=== PATIENT | female | born 1975 | race Caucasian/White ===

== ENCOUNTER → 2019-05-10 | Outpatient (CLI) | payer BC ==
[2014-03-31 09:50] VITALS: BP 118/62
[~2019-05-10] MED LIST: INSU100C4 SQ; INSU100V13 SQ; INSU100V6 SQ; LIRA0.6P2 SQ; RANI150T2 PO
--- NOTE | 2019-05-10 13:24 | RAD ---
EXAM: Chest, 2 views. HISTORY: Shortness of breath. COMPARISON: None. FINDINGS: 2 views of the chest are obtained. There is mild diffuse increased interstitial opacity. There is no consolidation, pleural effusion or pneumothorax. The heart is normal in size. There are few calcified granulomas. IMPRESSION: Diffuse increased interstitial opacity suggesting interstitial infiltrate. There is no consolidation. Electronically signed by: Philly Palomo MD (05/10/2019 1:21 PM) [id number]
== END | disposition home or self-care (01) ==
LOC: RAD 08:12
PROVIDERS: ATTEND Physician Assistant Surgical
DX: J98.4 Other disorders of lung (principal); R06.02 Shortness of breath
CPT/HCPCS: 71046

== ENCOUNTER → 2020-08-24 | Outpatient (CLI) | payer BC ==
[2014-03-31 09:50] VITALS: BP 118/62
--- NOTE | 2020-08-24 13:13 | KCIC ---
PQRS Compliance Statement: One or more of the following individualized dose reduction techniques were utilized for this examinat ion: 1. Automated exposure control 2. Adjustment of the mA and/or kV according to patient size 3. Use of iterative reconstruction technique CT MAXILLOFACIAL WITHOUT CONTRAST 08/24/2020 9:00 AM Indication: Chronic sinusitis, pain and pressure behind eyes. Drainage and cough COMPARISON: None available. TECHNIQUE: Multiple axial CT images of the paranasal sinuses were obtained without intravenous contra st. Coronal and sagittal reformats are provided. FINDINGS: Review of the topogram demonstrates no abnormalities. The frontal sinuses are normal. The ethmoid si nuses are normal. The maxillary sinuses are normal. Mild mucosal thickening of the left sphenoid si nus. The ostiomeatal units are open bilaterally. Minimal deviation of the nasal septum to the right by 3 mm. No areas of bony erosion are identified. The orbits are normal. Limited view of the front al lobes is normal. IMPRESSION: Mild mucosal thickening of the left sphenoid sinus. Ostiomeatal units are widely patent. Minimal deviation of the nasal septum to the right by 3 mm. Electronically signed by: Yoly Camarena MD (08/24/2020 1:11 PM) [id number]
== END ==
LOC: KCIC CT 08:45
PROVIDERS: ATTEND Family Medicine
DX: J32.8 Other chronic sinusitis (principal); J34.2 Deviated nasal septum
CPT/HCPCS: 70486